=== PATIENT | female | born 1970 | race Caucasian/White ===

== ENCOUNTER 2018-04-22 05:17 | Observation (INO) | payer BC, OTHER ==
[2018-04-22] VITALS (11 sets, daily range): BP systolic 110–154; BP diastolic 68–76
[~2018-04-22] VITALS: Ht 160 cm; Wt 76.7 kg
[~2018-04-22 05:17] MED LIST: ATORVASTATIN CA40 MG ORAL; REPATHA SY140 MG/1 M SQ; Vit B12 PO
[2018-04-22] MEDS ORDERED: Zemuron 50mg/5ml Inj IV ONE (06:09)
[2018-04-22] MEDS ORDERED: RAMIPRIL5 MG ORAL (06:10)
[2018-04-22] MEDS ORDERED: Bupivacaine 0.5% Inj 30 ml vial INJ ONE (06:34)
[2018-04-22] MEDS ORDERED: Bacitracin 50000 Units Vial ONE (06:34)
[2018-04-22] MEDS ORDERED: Lidocaine 1% Plain 30 ml INJ ONE ×3 (06:34→09:14)
[2018-04-22] MEDS ORDERED: Thrombin 5000 units TOPIC ONE ×2 (06:34→06:35)
[2018-04-22] MEDS ORDERED: Lidocaine 1% MPF 10mg/ml 5ml ONE (06:35)
[2018-04-22] MEDS ORDERED: Sodium Chloride 10ml vial INJ ONE (06:35)
[2018-04-22] MEDS ORDERED: fentaNYL 100 mcg/2 mL IV ONE ×2 (06:47→08:29)
[2018-04-22] MEDS ORDERED: Glycopyrrolate 0.2mg/ml 1ml Vial ONE (07:00)
[2018-04-22] MEDS ORDERED: Sterile Water Irrig 1000ml IRRIG ONE (07:00)
[2018-04-22] MEDS ORDERED: Dexamethasone 20mg/5ml IVP ONE (07:00)
[2018-04-22] MEDS ORDERED: Propofol 1,000mg/ 100ml btl IV ONE (07:00)
[2018-04-22] MEDS ORDERED: LR 1000ml ONE (07:00)
[2018-04-22] MEDS ORDERED: NS Irrig 1000ml ONE (07:00)
[2018-04-22] MEDS ORDERED: LR 1000ml 1,000 ML IVLG SCH (08:37)
--- NOTE | 2018-04-22 08:37 | Anethesia Preoperative Eval ---
Anesthesia Pre-op PMH/ROS General Date of Evaluation: Apr 22, 2018 Time of Evaluation: 07:11 Anesthesiologist: Florentino ASA Score: ASA 2 Mallampati Score Class I : Soft palate, uvula, fauces, pillars visible Class II: Soft palate, uvula, fauces visible Class III: Soft palate, base of uvula visible Class IV: Only hard plate visible Mallampati Classification: Class III Surgeon: Koby Diagnosis: Neck Pain Surgical Procedure: ACDF C5-6, C6-7 Anesthesia History: none Family History: no anesthesia problems Allergies: Coded Allergies: NUT - UNSPECIFIED (Verified Allergy, Intermediate, rash, 03/11/18) "all kinds of nuts" PENICILLINS (Verified Allergy, Intermediate, rash, 03/11/18) MORPHINE (Verified Adverse Reaction, Intermediate, hallucination, 03/11/18) Medications: see eMAR Past Medical History Cardiovascular: Reports: HTN, other - HL Other: obesity - BMI 32 PSxH Narrative: Septoplasty, Turbinectomy, C/Sx3, Cyst L Breast, Breast Reduction, Umbilical Hernia Repair, Hemorrhoidectomy Anesthesia Pre-op Phys. Exam Physician Exam Last Vital Signs Date Time Temp Pulse Resp B/P (MAP) Pulse Ox O2 Delivery O2 Flow Rate FiO2 04/22/18 06:16 97.7 73 18 154/71 99 Room Air 97.7 Constitutional: NAD Neurologic: CN 2-12 intact Cardiovascular: RRR Respiratory: CTA Gastrointestinal: S/NT/ND Airway Exam Mallampati Score: Class III MO: full ROM: limited Teeth: intact Anesthesia Pre-op A/P Risk Assessment & Plan Assessment: ASA 2 Plan: GA, BIS, GlideScope Go Status Change Before Surgery: No Pre-Antibiotics Dru Grams Ancef IV Given Within 1 Hr of Incision: Yes Time Given: 07:26 Berto Good MD Apr 22, 2018 08:37
--- NOTE | 2018-04-22 08:40 | Immediate Post-Op Evaluation ---
Immediate Post-Op Evalulation Immediate Post-Op Evalulation Procedure: ACDF C5-6, C6-7 Date of Evaluation: Apr 22, 2018 Time of Evaluation: 10:40 IV Fluids: 1000 LR Blood Products: 0 Estimated Blood Loss: 25 Urinary Output: 0 Blood Pressure Systolic: 126 Blood Pressure Diastolic: 68 Pulse Rate: 76 Respiratory Rate: 16 O2 Sat by Pulse Oximetry: 99 Temperature (Fahrenheit): 97.1 Pain Score (1-10): 3 Nausea: No Vomiting: No Complications 0 Patient Status: awake, reacts, patent, extubated, none Hydration Status: adequate Dru Grams Ancef IV Given Within 1 Hr of Incision: Yes Time Given: 07:26 Berto Good MD Apr 22, 2018 08:40
[2018-04-22] MEDS ORDERED: Hydromorphone 0.5mg/0.5ml inj IVP PRN ×2 (08:45→14:00)
[2018-04-22] MEDS ORDERED: fentaNYL 100 mcg/2 mL IV PRN (08:45)
[2018-04-22] MEDS ORDERED: Atropine Inj 1mg/10ml Syr IV PRN (08:45)
[2018-04-22] MEDS ORDERED: LORazepam Inj 2mg/ml 1ml IV PRN (08:45)
[2018-04-22] MEDS ORDERED: oxyCODONE HCL/Acetaminophen 5/325mg ORAL PRN (08:45)
[2018-04-22] MEDS ORDERED: Ketorolac 30mg Inj IV PRN ×2 (08:45)
[2018-04-22] MEDS ORDERED: Acetaminophen (Non formulary) 100 ML IV ONE (08:45)
[2018-04-22] MEDS ORDERED: Labetalol 5mg/ml 20ml vial IV PRN (08:45)
[2018-04-22] MEDS ORDERED: Midazolam 2mg/2ml Inj IVP PRN (08:45)
[2018-04-22] MEDS ORDERED: Norco 5mg/325mg tab ORAL PRN (08:45)
[2018-04-22] MEDS ORDERED: Metoclopramide 10mg/2ml Inj IVP PRN (08:45)
[2018-04-22] MEDS ORDERED: HYDROcodone/Acetamin 7.5/325 tab ORAL PRN (08:45)
[2018-04-22] MEDS ORDERED: DiphenhydrAMINE 50mg/ml Inj IVP PRN (08:45)
[2018-04-22] MEDS ORDERED: Neostigmine 1mg/ml 10ml Inj ONE (09:55)
--- NOTE | 2018-04-22 10:08 | Pre-Procedure Note/Attestation ---
Pre-Procedure Note/Attestation Complete Prior to Procedure Planned Procedure: not applicable Procedure Narrative: ADR possible ACDF C5-6, C6-7 Indications for Procedure Pre-Operative Diagnosis: Post traumatic Cervical Radiculopathy, Neck pain Attestation I attest that I discussed the nature of the procedure; its benefits; risks and complications; and alternatives (and the risks and benefits of such alternatives ), prior to the procedure, with the patient (or the patient's legal freight representative). I attest that, if there was a reasonable possibility of needing a blood transfusion, the patient (or the patient's legal freight representative) was given the [facility] standardized written summary, pursuant to the Noel Jeana Blood Safety Act ([place] Health and Safety Code # 1645, as amended). I attest that I re-evaluated the patient just prior to the surgery and that there has been no change in the patient's H&P, except as documented below: ADIA BOLES Apr 22, 2018 10:08
--- NOTE | 2018-04-22 10:19 | Brief Operative Note ---
Immediate Post Operative Note Operative Note Pre-op Diagnosis: Post traumatic Cervical Radiculopathy, Neck pain Procedure: ADR C5-6 ACDF C6-7 Anterior internal fixation C6-7 SSEP/EMG Fluroscopy Osteopromotive material fusion C6-7 with autograft Anterior internal plate fixation high power disection Post-op Diagnosis: same as pre-op Findings: consistent w/pre-op dx studies Surgeon: Koby Ph.D., M.D. Condenser Setter: Natalie THAKKAR Anesthesiologist: Florentino PIZARRO Anesthesia: general Specimen: yes Complications: none Condition: stable Fluids: anesthesia Estimated Blood Loss: minimal Drains: none Implant(s) used?: Yes ADIA BOLES Apr 22, 2018 10:19
--- NOTE | 2018-04-22 12:05 | Diagnostic Imaging Report ---
Indication: Pain, intraoperative Technique: Intraoperative images Comparison: none Findings: Intraoperative images demonstrate surgical tool projected at the C6-7 level. Subsequent images demonstrate placement of a disc prosthesis at C5-6 and anterior fusion hardware and a disc spacer at C6-7. Impression: Intraoperative imaging, as described
[2018-04-22] MEDS ORDERED: Naloxone 0.4mg/ml Inj IVP PRN (12:30)
[2018-04-22] MEDS ORDERED: D5 1/2NS 1,000 ML IV SCH (12:30)
[2018-04-22] MEDS ORDERED: ceFAZolin sod 1 GM in D5W 110 ML IV SCH (15:00)
[2018-04-22] MEDS ORDERED: Hydromorphone 0.5mg/0.5ml inj SUBQ PRN (15:45)
[2018-04-22] MEDS ORDERED: oxyCODONE 5mg IR tab ORAL PRN (15:45)
[2018-04-22] MEDS ORDERED: Hydromorphone 0.5mg/0.5ml inj SUBQ SCH (16:00)
[2018-04-22] MEDS ORDERED: Chloraseptic Spray 20mL Bottle ORAL PRN (16:00)
[2018-04-22] MEDS ORDERED: Chloraseptic Spray 20mL Bottle ORAL ONE (16:30)
--- NOTE | 2018-04-22 16:45 | Operative Note - Dictated ---
DATE OF OPERATION: 04/22/2018 PRIMARY SURGEON: Alli Whalen, PhD., M.D. ADMITTING/PREOPERATIVE DIAGNOSIS: Posttraumatic cervicogenic neck pain with radiculopathy. POSTOPERATIVE DIAGNOSIS: Posttraumatic cervicogenic neck pain with radiculopathy. OPERATIVE PROCEDURE: 1. C5-C6 artificial disc replacement, Medtronic Prestige. 2. C6-C7 ACDF titanium lordotic graft with correction deformity. 3. Anterior internal plate fixation. 4. Placement of osteopromotive material for fusion, Bio-4. 5. Local autograft. 6. High-power magnification and dissection. 7. SSEP/EMG monitoring. 8. Intraoperative fluoroscopy interpreted by surgeon. COMPLICATIONS: None. POSTOPERATIVE CONDITION: Good/stable. PROCEDURE: The patient was brought to the operating room and in the supine position, general anesthesia with intubation was induced. IV antibiotics and IV Decadron were administered 30 minutes prior to incision time. After appropriate positioning, cross-table imaging was obtained with markers in place on the contralateral aspect of the neck for determination of incision level placement. Left side of the neck was marked sterilely with pen. Markers that were placed on the right side of the neck for radiographs that did not penetrate the skin were removed. Anterior cervical spine was sterilely prepped and draped free in usual sterile fashion. A left transverse incision at the appropriate interval was sharply placed in the dermis and epidermis. Electrocautery dissection was carried through the subcutaneous tissue to the level of the platysmas muscle. It was identified, isolated and transected in line with the incision. Blunt dissection was carried on the medial aspect of the sternocleidomastoid muscle medial to carotid sheath through the deep cervical and pretracheal fascia to the midline between the right and left longus colli muscles. A spinal needle bent at 90 degree angle so as to avoid penetration greater than 3 mm into disc space was placed in the disc space. A cross-table image was obtained under sterile conditions demonstrating the correct level for further dissection. Level was marked. Needle removed. Subperiosteal dissection was undertaken of the longus colli muscles. A 3 mm maximum from the medial lateral extent over the involved intervals. C5-C6: Retractors placed. Confirmation of level with fluoroscopic imaging. Diskectomy with minimal utilization of Midas Rey blair. Posterior longitudinal ligament resected. Trial undertaken demonstrating the correct graft. Appropriate instrumentation undertaken for the graft. The artificial disc was tamped into position. Excellent alignment. Midline. Retractors were placed at the C6-C7 interval. Large anterior osteophyte encountered. Precluded placement of artificial disc. Osteophyte resected under high-power magnification and Midas Rey bur dissection. Diskectomy performed to the posterior longitudinal ligament. Osteophytes removed with cartilage removal of the endplates to subchondral bleeding bone. Appropriate trial determined with all traction and traction pin utilization on the neck removed. Trial utilized with Bio-4 autograft placed within the confines. Tamped into position. Cross-table imaging, excellent alignment and positioning. All traction on the neck had been removed. Anterior internal plate fixation in a compressive fashion with 15 mm screws at the C6-C7 interval undertaken. Fluoroscopic imaging under sterile conditions demonstrating excellent alignment placement. Wound irrigated with antibiotic-containing saline. Exploration revealed no obvious excoriation or laceration of vital structures. The patient remained stable throughout the entire procedure. FloSeal applied. Reapproximation of the platysmas muscle, subcutaneous tissue, dermis and epidermis. Surgical strips applied followed with sterile bandage. The patient awakened and extubated in the operating room and transported to postoperative recovery in good stable condition. Alli Whalen M.D. DR: GENESIS JOB#: [id number] CC:
[2018-04-22] MEDS ORDERED: SOMA350 MG PO (17:32)
[2018-04-22] MEDS ORDERED: PERCOCET 10-321 EACH ORAL (17:33)
[2018-04-22] MEDS ORDERED: Docusate 100mg cap ORAL SCH (18:00)
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
== END 2018-04-22 17:58 | disposition home or self-care (01) ==
LOC: SDSOVERFLO 05:17 → INTOOBSV 05:17 → 3E 11:23
DX: M54.12 Radiculopathy, cervical region (principal); V89.2XXS Person injured in unspecified motor-vehicle accident, traffic, sequela; I10 Essential (primary) hypertension; E78.5 Hyperlipidemia, unspecified; Z88.6 Allergy status to analgesic agent; Z88.0 Allergy status to penicillin
CPT/HCPCS: 22551; 22856; 36415; 72040; 76001; 86850; 86900; 86901; 87081; 97161; C1713; G0378; J0690; J1100; J1170; J1200; J1885; J2001; J2250; J2405; J2704; J2710; J3010; J3370; J3490; J7120; 94003; 94150